=== PATIENT | female | born 1965 | race Caucasian/White ===

== ENCOUNTER 2020-09-15 05:45 | Emergency (ER) | payer OTHER ==
[2020-09-15 06:17] LABS: BASOPHIL 1.1 % (0-2); EOSINOPHIL 0.3 % (0-5); HCT 41.9 % (37.0-47.0); HGB 14.3 g/dl (12.5-16.0); LYMPHOCYTE 29.3 % (15-48); MCH 32.6 pg (25.0-31.0); MCHC 34.1 g/dL (32.0-36.0); MCV 95.7 fL (78.0-100.0); MONOCYTE 6.5 % (0-12); MPV 8.7 fL (6.0-9.5); NEUTROPHIL 62.4 % (41-80); NRBC 0; PLT 378 K/uL (150-400); RBC 4.38 M/uL (4.20-5.40); RDW 12.9 % (11.5-14.0); WBC 9.9 K/uL (4.0-10.5)
[2020-09-15 06:43] LABS: ALBUMIN 3.8 g/dL (3.4-5.0); BILIRUBIN - TOTAL 0.2 mg/dL (0.2-1.0); BUN/CREAT RATIO (CALC) 29.7 RATIO; CREATININE 0.64 mg/dL (0.51-0.95); GLOBULIN (CALCULATION) 3.7 g/dL; POTASSIUM 3.9 mmol/L (3.5-5.1); TOTAL PROTEIN 7.5 g/dL (6.4-8.2)
[2020-09-15] MEDS ORDERED: IMITREX50 MG PO (07:43)
[2020-09-15] MEDS ORDERED: PHENERGAN25 M1 PO (07:43)
== END 2020-09-15 08:00 | disposition home or self-care (01) ==
LOC: FER 05:45
PROVIDERS: Emergency Medicine Emergency Medical Services
DX: G43.909 Migraine, unspecified, not intractable, without status migrainosus (principal); R10.13 Epigastric pain; E03.9 Hypothyroidism, unspecified; F17.210 Nicotine dependence, cigarettes, uncomplicated; Z79.899 Other long term (current) drug therapy
CPT/HCPCS: 36415; 80053; 83690; 85025; J1100; J1200; J1885; J2550; J2765; J7030